=== PATIENT | female | born 1990 | race Two or more races ===

== ENCOUNTER 2018-04-12 10:35 | Emergency (ER) | payer MEDICAID ==
[~2018-04-12] VITALS: Ht 157.5 cm; Wt 93.0 kg
[~2018-04-12 10:35] MED LIST: NORMODYNE100 MG ORAL
[2018-04-12 12:04] LABS: APPEARANCE,URINE CLEAR; BILIRUBIN, URINE NEGATIVE (NEGATIVE); COLOR,URINE PALE YELLOW; GLUCOSE, URINE (UA) NEGATIVE (NEGATIVE); KETONES,URINE NEGATIVE (NEGATIVE); LEUKOCYTE ESTERASE ,URINE NEGATIVE (NEGATIVE); NITRITE,URINE NEGATIVE (NEGATIVE); PH,URINE 6 (4.5-8.0); PROTEIN,URINE NEGATIVE (NEGATIVE); UROBILINOGEN,URINE NORMAL MG/DL (0.0-1.0)
[2018-04-12 12:05] LABS: BASOPHILS % (AUTO) 0.5 % (0.0-2.0); EOSINOPHILS % (AUTO) 0.5 % (0.0-3.0); HEMATOCRIT 42.3 % (37.0-47.0); HEMOGLOBIN 14.6 G/DL (12.0-16.0); LYMPHOCYTES % (AUTO) 13.4 % (20.0-45.0); MEAN CORPUSCULAR VOLUME 86 FL (80-99); MONOCYTES % (AUTO) 5.1 % (1.0-10.0); NEUTROPHILS % (AUTO) 80.5 % (45.0-75.0); PLATELET COUNT 281 K/UL (150-450); RED BLOOD COUNT 4.91 M/UL (4.20-5.40); RED CELL DISTRIBUTION WIDTH 11.9 % (11.6-14.8); WHITE BLOOD COUNT 11.2 K/UL (4.8-10.8)
[2018-04-12 12:20] LABS: ANION GAP 10 mmol/L (5-15); BLOOD UREA NITROGEN 7 mg/dL (7-18); CALCIUM 9.8 MG/DL (8.5-10.1); CARBON DIOXIDE 27 MMOL/L (21-32); CHLORIDE 100 MMOL/L (98-107); CREATININE 0.5 MG/DL (0.55-1.30); POTASSIUM 3.2 MMOL/L (3.5-5.1); SODIUM 137 MMOL/L (136-145)
[2018-04-12 12:24] LABS: ALANINE AMINOTRANSFERASE 25 U/L (12-78); ALBUMIN 3.4 G/DL (3.4-5.0); ALBUMIN/GLOBULIN RATIO 0.7 (1.0-2.7); ALKALINE PHOSPHATASE 88 U/L (46-116); ASPARTATE AMINO TRANSFERASE 15 U/L (15-37); BILIRUBIN,TOTAL 0.2 MG/DL (0.2-1.0)
[2018-04-12] MEDS ORDERED: ONDANSETRON ODT4 MG BC (13:34)
[2018-04-12] MEDS ORDERED: PEPCID AC20 M2 PO (13:34)
--- NOTE | 2018-04-12 13:39 | Diagnostic Imaging Report ---
Indication: Positive test, pelvic pain, vomiting Technique: Transabdominal and transvaginal images of the uterus Comparison: none Findings: There is a single live intrauterine . This demonstrates positive heart activity, heart rate of 144 bpm. There is an anterior fundal placenta, the edge of which is immediately adjacent to the internal cervical os. Cervix is closed, measures 4.7 cm in length. Amniotic fluid volume is adequate, amniotic fluid index 14.7 cm. There is a hypoechoic stroke structure is deep to the placenta. This measures 4.6 cm in diameter. This demonstrates internal vascularity and is therefore consistent with a fibroid measurements as follows: Biparietal diameter 29 mm, 15 weeks 2 days; head circumference 112 mm, 15 weeks 3 days; abdominal circumference 90 mm, 15 weeks 2 days; femur length 19 mm, 15 weeks 4 days. Estimated gestational age by average ultrasound measurement is 15 weeks 3 days. Estimated gestational age by dates is 11 weeks zero days. Estimated date of delivery is 10/01/2018 Only limited assessment of anatomy, due to very early stage of , emergent nature of the exam. Normal insertion of three-vessel cord is noted. Impression: Positive for single live intrauterine , estimated gestational age 15 weeks 3 days by average of ultrasound measurements. Edge of the placenta is immediately adjacent to the internal cervical os. Recommend repeat imaging at or after 20 weeks to evaluate for possible placenta previa Retroplacental fibroid noted Findings previously discussed by phone with emergency room physician Dr. Bojorquez
[2018-04-12 13:48] VITALS: BP 132/82
--- NOTE | 2018-04-14 14:52 | Emergency Room Report ---
History of Present Illness General Chief Complaint: Complications Source: Patient, EMS Present Illness HPI 27-year-old female presents ED for evaluation. Brought in by EMS. Complaining of feeling nauseous with epigastric pain. Started 3 days ago. States her blood pressure is high. States she is approximately 4 months . States she's been prescribed blood pressure medications by her PRICING SPECIALIST but states they are not helping. Blood pressure within normal limits per triage. Pain is sharp , epigastric, 7 out of 10, nonradiating. Denies any vaginal bleeding. No other aggravating relieving factors. Denies any other associated symptoms Allergies: Coded Allergies: No Known Allergies (Unverified , 04/12/18) Patient History Past Medical History: HTN Past Surgical History: none Pertinent Family History: none Social History: Denies: smoking, alcohol use, drug use Last Menstrual Period: "3 mo ago" Now: Yes - "3 mo " Immunizations: UTD Reviewed Nursing Documentation: PMH: Agreed; PSxH: Agreed Nursing Documentation-PMH Past Medical History: No History, Except For Hx Hypertension: Yes Review of Systems All Other Systems: negative except mentioned in HPI Physical Exam Vital Signs Date Time Temp Pulse Resp B/P (MAP) Pulse Ox O2 Delivery O2 Flow Rate FiO2 04/12/18 10:24 98.1 109 20 132/82 98 Room Air 98.1 Sp02 EP Interpretation: reviewed, normal General Appearance: no apparent distress, alert, GCS 15, non-toxic Head: normocephalic, atraumatic Eyes: bilateral eye normal inspection, bilateral eye PERRL ENT: hearing grossly normal, normal pharynx, no angioedema, normal voice Neck: full range of motion, supple/symm/no masses Respiratory: chest non-tender, lungs clear, normal breath sounds, speaking full sentences Cardiovascular #1: regular rate, rhythm, no edema Cardiovascular #2: 2+ carotid (R), 2+ carotid (L), 2+ radial (R), 2+ radial (L) , 2+ dorsalis pedis (R), 2+ dorsalis pedis (L) Gastrointestinal: normal bowel sounds, non tender, soft, non-distended, no guarding, no rebound Rectal: deferred Genitourinary: normal inspection, no CVA tenderness Musculoskeletal: back normal, gait/station normal, normal range of motion, non- tender Neurologic: alert, oriented x3, responsive, motor strength/tone normal, sensory intact, speech normal Psychiatric: judgement/insight normal, memory normal, mood/affect normal, no suicidal/homicidal ideation Reflexes: 3+ bicep (R), 3+ bicep (L), 3+ tricep (R), 3+ tricep (L), 3+ knee (R) , 3+ knee (L) Skin: normal color, no rash, warm/dry, well hydrated Lymphatic: no adenopathy Medical Decision Making Diagnostic Impression: Primary Impression: Abdominal pain affecting Additional Impressions: Gastritis Qualified Codes: K29.00 - Acute gastritis without bleeding Placenta previa Qualified Codes: O44.02 - Complete placenta previa nos or without hemorrhage, second trimester ER Course Hospital Course 27-year-old female presents to ED complaining of abdominal pain with N/V. . c/o high BP Differential diagnoses include: gastrits, gastroenterits, ectopic , ovarian torsion/cyst, UTI Clinical course Patient placed on stretcher in ED. After initial history and physical I ordered labs, IV fluids and Zofran, pepcid and pelvic ultrasound. Labs-no leukocytosis, electrolytes okay, beta hCG greater than elevated, UA unremarkable Pelvic ultrasound-IUP detected with heart rate. ? placenta previa On reassessment patient feels better. 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 Reassurance given to the patient. Discussed findings of placenta previa with the patient and recommended close follow-up with her [facility]ICING SPECIALIST Diagnosis - abdominal pain affecting , gastritis, placentia previa Stable and discharged to home. Followup with PMD/PRICING SPECIALIST. Return to ED if symptoms recur or worsen Labs Test 04/12/18 11:30 White Blood Count 11.2 K/UL (4.8-10.8) Red Blood Count 4.91 M/UL (4.20-5.40) Hemoglobin 14.6 G/DL (12.0-16.0) Hematocrit 42.3 % (37.0-47.0) Mean Corpuscular Volume 86 FL (80-99) Mean Corpuscular Hemoglobin 29.6 PG (27.0-31.0) Mean Corpuscular Hemoglobin Concent 34.5 G/DL (32.0-36.0) Red Cell Distribution Width 11.9 % (11.6-14.8) Platelet Count 281 K/UL (150-450) Mean Platelet Volume 8.2 FL (6.5-10.1) Neutrophils (%) (Auto) 80.5 % (45.0-75.0) Lymphocytes (%) (Auto) 13.4 % (20.0-45.0) Monocytes (%) (Auto) 5.1 % (1.0-10.0) Eosinophils (%) (Auto) 0.5 % (0.0-3.0) Basophils (%) (Auto) 0.5 % (0.0-2.0) Urine Color Pale yellow Urine Appearance Clear Urine pH 6 (4.5-8.0) Urine Specific [place] 1.005 (1.005-1.035) Urine Protein Negative (NEGATIVE) Urine Glucose (UA) Negative (NEGATIVE) Urine Ketones Negative (NEGATIVE) Urine Occult Blood Negative (NEGATIVE) Urine Nitrite Negative (NEGATIVE) Urine Bilirubin Negative (NEGATIVE) Urine Urobilinogen Normal MG/DL (0.0-1.0) Urine Leukocyte Esterase Negative (NEGATIVE) Urine HCG, Qualitative Positive (NEGATIVE) Sodium Level 137 MMOL/L (136-145) Potassium Level 3.2 MMOL/L (3.5-5.1) Chloride Level 100 MMOL/L (98-107) Carbon Dioxide Level 27 MMOL/L (21-32) Anion Gap 10 mmol/L (5-15) Blood Urea Nitrogen 7 mg/dL (7-18) Creatinine 0.5 MG/DL (0.55-1.30) Estimat Glomerular Filtration Rate > 60 mL/min (>60) Glucose Level 106 MG/DL (74-106) Calcium Level 9.8 MG/DL (8.5-10.1) Total Bilirubin 0.2 MG/DL (0.2-1.0) Aspartate Amino Transf (AST/SGOT) 15 U/L (15-37) Alanine Aminotransferase (ALT/SGPT) 25 U/L (12-78) Alkaline Phosphatase 88 U/L (46-116) Total Protein 8.1 G/DL (6.4-8.2) Albumin 3.4 G/DL (3.4-5.0) Globulin 4.7 g/dL Albumin/Globulin Ratio 0.7 (1.0-2.7) Lipase 86 U/L (73-393) Human Chorionic Gonadotropin, Quant 53677 mIU/mL (1-6) CT/MRI/US Diagnostic Results CT/MRI/US Diagnostic Results : Imaging Test Ordered: OB US Impression IUP approximately 15 weeks. + FHR. ? placenta previa Last Vital Signs Date Time Temp Pulse Resp B/P (MAP) Pulse Ox O2 Delivery O2 Flow Rate FiO2 04/12/18 13:48 98.1 20 132/82 98 Room Air 98.1 04/12/18 10:24 109 Status: improved Disposition: HOME, SELF-CARE Condition: Stable Scripts Famotidine (PEPCID AC) 20 Mg Tablet 20 MG PO BID for 10 Days, TAB Prov: Burke Bojorquez MD 04/12/18 Ondansetron Odt* (ZOFRAN ODT*) 4 Mg Tab.rapdis 4 MG BC EVERY 6 HOURS PRN for Nausea & Vomiting, #20 TAB 0 Refills Prov: Burke Bojorquez MD 04/12/18 Patient Instructions: Abdominal or Pelvic Ultrasound, [id number] Burke Bojorquez MD Apr 14, 2018 14:51
== END 2018-04-12 13:50 | disposition home or self-care (01) ==
LOC: EDBD 10:35 → EMR 11:20
DX: O26.892 Other specified pregnancy related conditions, second trimester (principal); Z3A.15 15 weeks gestation of pregnancy; K29.70 Gastritis, unspecified, without bleeding; O44.02 Complete placenta previa NOS or without hemorrhage, second trimester; O16.2 Unspecified maternal hypertension, second trimester
CPT/HCPCS: 36415; 76805; 80053; 81003; 81025; 83690; 84702; 85025; 96361; 96374; 96375; 99284; J2405; S0028